=== PATIENT | male | born 1995 | race African-American/Black ===

== ENCOUNTER 2019-05-09 19:58 | Emergency (ER) | payer MEDICAID ==
[~2019-05-09] VITALS: Ht 170.2 cm; Wt 133.6 kg
[2019-05-09] MEDS ORDERED: ACETAMINOPHEN 500MG TABLET PO NR (21:15)
[2019-05-09 23:51] LABS: BASOPHILS % 0.5 % (0.0-2.0); EOSINOPHILS % 1.5 % (0.0-5.0); HEMATOCRIT. 44.7 % (42.0-52.0); HEMOGLOBIN. 14.4 g/dL (14.0-18.0); LYMPHOCYTES % 20.4 % (20.0-50.0); MEAN CORPUSCULAR HEMOGLOBIN 26.5 pg (28.0-32.0); MEAN CORPUSCULAR VOLUME 82.2 fL (80.0-94.0); MEAN PLATELET VOLUME 7.4 fl (7.4-10.4); NEUTROPHILS % 72.6 % (40.0-76.0); PLATELET 428 x1000/uL (130-400); RED BLOOD CELL COUNT 5.44 mill/uL (4.7-6.1); RED CELL DISTRIBUTION WIDTH 14.3 % (11.6-14.6)
[2019-05-09 23:56] LABS: CHLORIDE 102 mEq/L (98-107)
[2019-05-10] MEDS ORDERED: INSULIN REGULAR (HUMULIN R) 300UNITS/3ML SUBCUT NR (00:15)
[2019-05-10 02:00] VITALS: BP 129/81
== END 2019-05-10 02:00 | disposition home or self-care (01) ==
LOC: ER 19:58
DX: J11.1 Influenza due to unidentified influenza virus with other respiratory manifestations (principal); E11.65 Type 2 diabetes mellitus with hyperglycemia; J06.9 Acute upper respiratory infection, unspecified; H69.83 Other specified disorders of Eustachian tube, bilateral; R51 Headache; H92.01 Otalgia, right ear; E66.01 Morbid (severe) obesity due to excess calories; J00 Acute nasopharyngitis [common cold]; I49.9 Cardiac arrhythmia, unspecified; J34.89 Other specified disorders of nose and nasal sinuses; Z68.42 Body mass index [BMI] 45.0-49.9, adult
CPT/HCPCS: 36415; 71045; 80053; 82962; 83880; 84484; 85025; 87804; 93005; 96372; 99284; J1815